=== PATIENT | male | born 1975 | race Caucasian/White ===

== ENCOUNTER 2022-12-19 05:18 | Day surgery (SDC) | payer OTHER ==
[2022-12-15 11:02] VITALS: BMI 29.0
[2022-12-19 14:17] VITALS: RESP 18
[2022-12-19] MEDS ORDERED: FENTANYL CITRATE/PF 50 MCG/ML VIAL ONE (17:47)
[2022-12-19] MEDS ORDERED: MIDAZOLAM HCL 2 MG/2 ML SINGLE DOSE VIAL ONE (17:47)
[2022-12-19 19:24] VITALS: BP 122/84; PULSE 62; TEMP 97.9
== END 2022-12-19 19:28 | disposition home or self-care (01) ==
LOC: JASU-SURG 05:18
PROVIDERS: ATTEND Urology
PROC: 0TF4XZZ Fragmentation in Left Kidney Pelvis, External Approach (ICD-10-PCS; principal; 2022-12-19 15:30)
DX: N20.0 Calculus of kidney (principal)